=== PATIENT | male | born 1975 | race Caucasian/White ===

== ENCOUNTER 2022-09-07 15:42 | Emergency (ER) | payer SELFPAY | END 2022-09-07 16:37 | disposition home or self-care (01) | LOC: BURERS 15:42 | DX: S63.602A Unspecified sprain of left thumb, initial encounter (principal); F17.210 Nicotine dependence, cigarettes, uncomplicated; W23.0XXA Caught, crushed, jammed, or pinched between moving objects, initial encounter; Y99.0 Civilian activity done for income or pay ==

== ENCOUNTER 2024-12-29 18:15 | Emergency (ER) | payer SELFPAY | END 2024-12-29 19:01 | disposition home or self-care (01) | LOC: BURERS 18:15 | DX: K04.7 Periapical abscess without sinus (principal); L03.211 Cellulitis of face; F17.210 Nicotine dependence, cigarettes, uncomplicated | CPT/HCPCS: 99283 ==